=== PATIENT | female | born 1960 | race Caucasian/White ===

== ENCOUNTER → 2019-04-09 | Outpatient (REF) | payer OTHER | LOC: M LAB REF 13:16 | PROVIDERS: ATTEND Physician Assistant | DX: N39.0 Urinary tract infection, site not specified (principal) ==

== ENCOUNTER 2023-02-28 08:41 | Day surgery (SDC) | payer OTHER ==
[~2023-02-28] VITALS: Ht 172.7 cm; Wt 128.3 kg
[~2023-02-28 08:41] MED LIST: NS 1,000 ML IV ONE
[2023-02-28] MEDS ORDERED: LIDOCAINE 2% 100MG/5ML SDV (FOR ANES.) As Ordered ONE (11:32)
[2023-02-28] MEDS ORDERED: propofoL 200 MG/20 ML VIAL As Ordered ONE ×2 (11:32→12:02)
[2023-02-28 12:13] VITALS: TEMP 98.8
[2023-02-28 12:30] VITALS: BP 132/74; O2SAT 96
== END 2023-02-28 12:39 | disposition home or self-care (01) ==
LOC: M OPP 08:41
PROVIDERS: ATTEND Surgery
DX: Z12.11 Encounter for screening for malignant neoplasm of colon (principal); K63.5 Polyp of colon; K62.1 Rectal polyp; K57.30 Diverticulosis of large intestine without perforation or abscess without bleeding; Z86.010 Personal history of colon polyps; R06.83 Snoring; F17.210 Nicotine dependence, cigarettes, uncomplicated